=== PATIENT | female | born 1995 | race American Indian/Alaskan Native ===

== ENCOUNTER 2017-02-20 15:12 | Emergency (ER) | payer MEDICAID ==
[2017-02-20 16:05] VITALS: BP 120/77
[2017-02-20 17:47] LABS: Bacteria,Urine 2+ /HPF (Negative); Bilirubin,Urine NEG (Negative); Blood,Urine SM (Negative); Ketones,Urine NEG (Negative); Leukocyte Esterase,Urine LG (Negative); Mucus,Urine FEW /HPF; Nitrite,Urine NEG (Negative); Protein,Urine <15 mg/dL mg/dL (Negative); Urobilinogen,Urine < 2.0 mg/dL (<2.0)
--- NOTE | 2017-02-20 20:13 | Ultrasound Report ---
FINAL REPORT EXAM: US OB TRANSVAGINAL HISTORY: abd pain TECHNIQUE: Ultrasound pelvis transvaginal PRIORS: None. FINDINGS: The uterus measures 8.5 x 4.7 x 5.0 centimeters. Endometrial thickness is 1.3 centimeters. No gestational sac identified within the uterus The right ovary is 4.3 x 3.3 x 1.9 centimeters somewhat complex appearing ovarian or possibly para ovarian mass 2.5 centimeters. Left ovary is 2.7 x 1.7 x 1.8 centimeters. There is free fluid seen within the cul-de-sac. IMPRESSION: Complex appearance within the right ovary or possibly paraovarian complex mass 2.5 centimeters Free fluid within the cul-de-sac Mild endometrial thickening beta HCG results not available at this time. If positive occult ectopic cannot be excluded. Differential consideration includes hemorrhagic cyst.
--- NOTE | 2017-02-20 20:14 | Ultrasound Report ---
FINAL REPORT EXAM: US OB \T\lt; = 14 WEEKS FETUS HISTORY: abd pain TECHNIQUE: Ultrasound pelvis transabdominal PRIORS: None. FINDINGS: Uterus demonstrates mild endometrial thickening. Ovaries are not identified the transabdominal exam. Please see results of today's transvaginal study for further evaluation. IMPRESSION: Endometrial thickening Please see report for today's transvaginal exam for further findings.
--- NOTE | 2017-02-24 15:45 | ED Elopement Review ---
ED Pt Elopement review - Results review Lab results: Laboratory Tests 02/20/17 17:23 Urine Color Yellow Urine Turbidity Slightly-cloudy Urine pH 6.0 Ur Specific [place] 1.020 Urine Protein <15 mg/dl Urine Glucose (UA) Neg Urine Ketones Neg Urine Blood Sm Urine Nitrite Neg Ur Reducing Substances Not Reportable Urine Bilirubin Neg Urine Ictotest Not Reportable Urine Urobilinogen < 2.0 Ur Leukocyte Esterase Lg Urine WBC (Auto) 8.0 H Urine RBC (Auto) 2.0 U Epithel Cells (Auto) 13.0 Urine Bacteria (Auto) 2+ Urine Mucus Few Urine HCG, Qual Positive A - Call Back decision Pt Call Back Decision: Call pt to return to ED [facility] (for repeat HCG and possible ultrasound)
== END 2017-02-20 21:55 | disposition left against medical advice (07) ==
LOC: ED 15:12
DX: R10.9 Unspecified abdominal pain (principal); Z53.21 Procedure and treatment not carried out due to patient leaving prior to being seen by health care provider
CPT/HCPCS: 76801; 76817; 81001; 81025

== ENCOUNTER 2017-03-31 19:29 | Emergency (ER) | payer MEDICAID ==
[2017-03-31 20:06] LABS: Bilirubin,Urine NEG (Negative); Blood,Urine NEG (Negative); Ketones,Urine 20 mg/dL (Negative); Leukocyte Esterase,Urine LG (Negative); Mucus,Urine FEW /HPF; Nitrite,Urine NEG (Negative); Urobilinogen,Urine < 2.0 mg/dL (<2.0)
[2017-03-31 20:25] LABS: Basophils % (Auto) 0.2 % (0.0-1.8); Eosinophils % (Auto) 0.6 % (0.0-4.3); Hematocrit 32.5 % (30.3-42.9); Mean Corpuscular HGB Conc 31 % (30-34); Mean Corpuscular Volume 74 fl (79-97); Platelet Count 376 K/mm3 (140-440); Red Blood Count 4.38 M/mm3 (3.65-5.03); Red Cell Distribution Width 18.1 % (13.2-15.2); White Blood Count 15.6 K/mm3 (4.5-11.0)
[2017-03-31 20:27] LABS: Anion Gap 20 mmol/L; Blood Urea Nitrogen 6 mg/dL (7-17); Calcium 9.4 mg/dL (8.4-10.2); Carbon Dioxide 23 mmol/L (22-30); Chloride 97.4 mmol/L (98-107); Glucose 93 mg/dL (65-100); Mean Corpuscular Hemoglobin 23 pg (28-32); Potassium 3.9 mmol/L (3.6-5.0); Sodium 136 mmol/L (137-145)
[2017-03-31] MEDS ORDERED: MACROBID PO ONE (20:30)
[2017-03-31] MEDS ORDERED: TYLENOL PO ONE (20:30)
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
[2017-03-31 21:01] LABS: Alanine Aminotransferase 6 units/L (7-56); Albumin/Globulin Ratio 1.1 %; Alkaline Phosphatase 49 units/L (35-129); Lipase 23 units/L (13-60); Total Protein 7.6 g/dL (6.3-8.2)
[2017-03-31 21:02] LABS: Bilirubin,Direct < 0.2 mg/dL (0-0.2)
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
[2017-04-01 00:13] VITALS: BP 116/71
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
--- NOTE | 2017-04-01 00:30 | Ultrasound Report ---
FINAL REPORT PROCEDURE: US OB transvaginal TECHNIQUE: Real-time transvaginal sonography of the uterus, placenta, amniotic fluid, adnexa, and fetus was performed with image documentation. Measurements were obtained to determine age/size. M-mode Doppler was used to document heartbeat. HISTORY: abd pain, bleeding, preg COMPARISON: No prior studies are available for comparison. FINDINGS: CRL: 27.6 mm, which corresponds to a gestational age of: 9 weeks, 4 days. Yolk Sac: Normal. Embryonic Cardiac Activity: 166 beats per minute Gestational Sac: Normal. Amniotic fluid: Normal. Cervix: Normal. Right Ovary: Normal. Left Ovary: Normal. Estimated delivery date: 10/30/2017 Uterus and adnexa: Normal. IMPRESSION: Single live intrauterine gestation at approximately 9 weeks and 4 days. EDC by US 10/30/2017
== END 2017-04-01 00:53 | disposition home or self-care (01) ==
LOC: ED 19:29
DX: O20.0 Threatened abortion (principal); O23.31 Infections of other parts of urinary tract in pregnancy, first trimester; N30.00 Acute cystitis without hematuria; R10.84 Generalized abdominal pain; Z3A.09 9 weeks gestation of pregnancy
CPT/HCPCS: 36415; 76705; 76801; 76817; 80048; 80074; 81001; 83690; 84703; 85025

== ENCOUNTER 2017-06-21 23:41 | Outpatient (CLI) | payer MEDICAID ==
[2017-06-22 00:13] VITALS: BP 98/51
[2017-06-22] MEDS ORDERED: LACTATED RINGERS 1,000 ML IV ONE (00:45)
[2017-06-22 01:20] LABS: Bacteria,Urine 1+ /HPF (Negative); Bilirubin,Urine NEG (Negative); Blood,Urine NEG (Negative); Ketones,Urine NEG (Negative); Leukocyte Esterase,Urine LG (Negative); Mucus,Urine FEW /HPF; Nitrite,Urine NEG (Negative); Protein,Urine <15 mg/dL mg/dL (Negative); Urobilinogen,Urine < 2.0 mg/dL (<2.0)
== END 2017-06-22 02:22 | disposition home or self-care (01) ==
LOC: TRG 23:41
PROVIDERS: ATTEND Obstetrics & Gynecology
DX: O47.02 False labor before 37 completed weeks of gestation, second trimester (principal); Z3A.21 21 weeks gestation of pregnancy
CPT/HCPCS: 81001

== ENCOUNTER 2017-09-08 11:14 | Outpatient (CLI) | payer MEDICAID ==
[2017-09-08 11:52] LABS: Urine Drugs of Abuse Note Disclamer
[2017-09-08 12:32] LABS: Bacteria,Urine 1+ /HPF (Negative); Mucus,Urine 3+ /HPF
[2017-09-08 13:06] LABS: Bilirubin,Urine Negative (Negative); Blood,Urine Negative (Negative); Ketones,Urine Negative (Negative); Nitrite,Urine Negative (Negative)
[2017-09-08 13:07] LABS: Leukocyte Esterase,Urine Large (Negative)
[2017-09-08 15:17] VITALS: BP 117/80
== END 2017-09-08 15:48 | disposition home or self-care (01) ==
LOC: TRG 11:14
PROVIDERS: ATTEND Obstetrics & Gynecology
DX: O47.03 False labor before 37 completed weeks of gestation, third trimester (principal); Z3A.34 34 weeks gestation of pregnancy
CPT/HCPCS: 80307; 81001

== ENCOUNTER 2017-09-12 12:34 | Outpatient (CLI) | payer MEDICAID ==
[2017-09-12] MEDS ORDERED: LACTATED RINGERS 2,000 ML ONE (12:55)
[2017-09-12 13:15] VITALS: BP 97/54
[2017-09-12] MEDS ORDERED: LACTATED RINGERS 500 ML IV ONE (13:17)
[2017-09-12 13:53] LABS: Bilirubin,Urine NEG (Negative); Blood,Urine NEG (Negative); Ketones,Urine 80 mg/dL (Negative); Leukocyte Esterase,Urine LG (Negative); Mucus,Urine 3+ /HPF; Nitrite,Urine NEG (Negative); Urobilinogen,Urine < 2.0 mg/dL (<2.0)
[2017-09-12] MEDS ORDERED: LACTATED RINGERS 1,000 ML IV SCH (14:00)
== END 2017-09-12 15:15 | disposition home or self-care (01) ==
LOC: TRG 12:34
PROVIDERS: ATTEND Obstetrics & Gynecology
DX: O47.03 False labor before 37 completed weeks of gestation, third trimester (principal); Z3A.34 34 weeks gestation of pregnancy
CPT/HCPCS: 36415; 59025; 81001; 82731; 96360; 96361; J7120

== ENCOUNTER 2017-10-18 11:42 | Outpatient (CLI) | payer MEDICAID ==
[2017-10-18 11:55] VITALS: BP 105/57
--- NOTE | 2017-10-18 13:47 | Ultrasound Report ---
ULTRASOUND BIOPHYSICAL PROFILE: History: well being Technique: Transabdominal ultrasound with Doppler interrogation. 2 - breathing movements 2 - movements 2 - posture and tone 2 - Qualitative amniotic fluid volume 8 - TOTAL SCORE OF POSSIBLE 8 Heart Rate (bpm) 142
== END 2017-10-18 14:21 | disposition home or self-care (01) ==
LOC: TRG 11:42 → LD 11:43 → TRG 14:21
PROVIDERS: ATTEND Obstetrics & Gynecology
DX: Z34.93 Encounter for supervision of normal pregnancy, unspecified, third trimester (principal); Z3A.38 38 weeks gestation of pregnancy
CPT/HCPCS: 59025; 76819

== ENCOUNTER 2017-10-24 05:15 | Inpatient (IN) | payer MEDICAID ==
[2017-10-24] MEDS ORDERED: REGLAN IV ONE (05:56)
[2017-10-24] MEDS ORDERED: BICITRA PO ONE (05:56)
[2017-10-24] MEDS ORDERED: PEPCID IV ONE (05:56)
[2017-10-24] MEDS ORDERED: ANCEF/STERILE WATER 2 GM/20 ML 2 GM/20 ML SYRINGE IV NR ×2 (06:00→09:00)
[2017-10-24] MEDS ORDERED: PITOCin/NS 20 UNIT/1000ML DRIP 20 UNITS/1,000 ML BAG IV SCH ×2 (06:00→10:00)
[2017-10-24] MEDS: LACTATED RINGERS 1,000 ML IV SCH ×2 (06:30→07:10)
[2017-10-24 06:58] LABS: Basophils % (Auto) 0.4 % (0.0-1.8); Hematocrit 27.1 % (30.3-42.9); Hemoglobin 8.4 gm/dl (10.1-14.3); Mean Corpuscular HGB Conc 31 % (30-34); Mean Corpuscular Hemoglobin 21 pg (28-32); Mean Corpuscular Volume 69 fl (79-97); Platelet Count 355 K/mm3 (140-440); Red Blood Count 3.94 M/mm3 (3.65-5.03); Red Cell Distribution Width 19.5 % (13.2-15.2); White Blood Count 13.5 K/mm3 (4.5-11.0)
--- NOTE | 2017-10-24 07:24 | Anesthesia Consultation ---
Anesthesia Consult and Med Hx Date of service: 10/24/17 - Airway Anesthetic Teeth Evaluation: Good ROM Head & Neck: Adequate Mental/Hyoid Distance: Adequate Mallampati Class: Class II Intubation Access Assessment: Probably Good - Pre-Operative Health Status ASA Pre-Surgery Classification: ASA2 Proposed Anesthetic Plan: Epidural, Spinal - Pulmonary Hx Asthma: Yes (last used inhaler this am) COPD: No Hx Pneumonia: No - Cardiovascular System Hx Hypertension: No - Central Nervous System Hx Seizures: No Hx Psychiatric Problems: No - Endocrine Hx Renal Disease: No Hx End Stage Renal Disease: No Hx Hypothyroidism: No Hx Hyperthyroidism: No - Hematic Hx Anemia: Yes Hx Sickle Cell Disease: No - Other Systems Hx Alcohol Use: No
--- NOTE | 2017-10-24 07:25 | Anesthesia Day of Surgery ---
Anesthesia Day of Surgery - Day of Surgery Patient Examined: Yes Patient H&P Reviewed: Yes Patient is NPO: Yes
[2017-10-24] MEDS ORDERED: MORPHINE ONE (07:47)
[2017-10-24] MEDS ORDERED: WATER FOR IRRIG STERILE IR ONE (07:50)
[2017-10-24] MEDS ORDERED: NACL 0.9% IR ONE (07:50)
[2017-10-24] MEDS ORDERED: SODIUM CHLORIDE FLUSH SYRINGE 10 ML IV PRN ×2 (08:00→12:00)
[2017-10-24] MEDS ORDERED: PHENERGAN PR PRN (08:30)
[2017-10-24] MEDS ORDERED: BENADRYL IV PRN (08:30)
[2017-10-24] MEDS ORDERED: DILAUDID ONE (08:41)
[2017-10-24] MEDS ORDERED: ZOFRAN ONE (08:46)
[2017-10-24] MEDS ORDERED: METHERGINE IM ONE ×2 (08:53→12:00)
[2017-10-24] MEDS ORDERED: PEPCID IV NR (09:00)
[2017-10-24] MEDS ORDERED: REGLAN IV NR (09:00)
[2017-10-24] MEDS ORDERED: ZOFRAN IV PRN ×2 (09:00→11:30)
[2017-10-24] MEDS ORDERED: DILAUDID IV PRN ×3 (09:00→11:30)
[2017-10-24] MEDS ORDERED: NARCAN 0.4 MG/1 ML IV PRN ×2 (09:00→11:30)
[2017-10-24] MEDS ORDERED: XYLOCAINE MPF 2% ONE (09:00)
[2017-10-24] MEDS ORDERED: NEO SYNEPHRINE/NS Syringe(OR USE) IV ONE (09:00)
[2017-10-24] MEDS ORDERED: LACTATED RINGERS 1,000 ML IV SCH (09:00)
[2017-10-24] MEDS ORDERED: BICITRA PO NR (09:00)
--- NOTE | 2017-10-24 09:25 | History and Physical Report ---
History of Present Illness Date of examination: 10/24/17 Date of admission: 10/24/17 05:15 10/24/17 Chief complaint: at 39 weeks for repeat C/section. History of present illness: This patient is a 22 year old , EDC 10/31/17 who is at 39 weeks gestation and admitted for elective repeat C/section. She denies any contractions, fluid leakage or bleeding. She reports good movement. Past History Past Medical History: asthma - Obstetrical History : 3 Medications and Allergies Allergies Allergy/AdvReac Type Severity Reaction Status Date / Time [place] Allergy Hives Verified 10/24/17 05:47 mushroom Allergy Hives Verified 10/24/17 05:48 Home Medications Medication Instructions Recorded Confirmed Last Taken Type Tablet 1 tab PO DAILY 03/31/17 10/24/17 1 Day Ago History ~10/23/17 Active Meds: Active Medications Acetaminophen (Tylenol) 650 mg PO Q4H PRN PRN Reason: Fever >100.5/ALBERT Citric Acid/Sodium Citrate (Bicitra) 30 ml PO ONCE NR Stop: 10/24/17 19:00 Diphenhydramine HCl (Benadryl) 12.5 mg IV Q2H PRN PRN Reason: Itching Famotidine (Pepcid) 20 mg IV ONCE NR Stop: 10/24/17 19:00 Hydromorphone HCl (Dilaudid) 0.5 mg IV Q4H PRN PRN Reason: breakthrough pain > 7/10 Hydromorphone HCl (Dilaudid) 0.25 mg IV Q3H PRN PRN Reason: Pain, Moderate (4-6) Hydromorphone HCl (Dilaudid) 0.5 mg IV Q3H PRN PRN Reason: Pain , Severe (7-10) Lactated Ringer's (Lactated Ringers) 1,000 mls @ 2,250 mls/hr IV PREOP RADHA Stop: 10/25/17 06:27 Last Admin: 10/24/17 07:10 Dose: 2,250 mls/hr Oxytocin/Sodium Chloride (Pitocin/Ns 20 Unit/1000ml Drip) 20 units in 1,000 mls @ 0 mls/hr IV TITR RADHA PRN Reason: As Directed Cefazolin Sodium (Ancef/Sterile Water 2 Gm/20 Ml) 2 gm in 20 mls @ 80 mls/hr IV PREOP NR PRN Reason: Protocol Stop: 10/24/17 19:00 Oxytocin/Sodium Chloride (Pitocin/Ns 20 Unit/1000ml Drip) 20 units in 1,000 mls @ 250 mls/hr IV DIRECT RADHA Ketorolac Tromethamine (Toradol) 30 mg IV Q6H PRN PRN Reason: Pain, Moderate (4-6) Stop: 10/29/17 08:59 Metoclopramide HCl (Reglan) 10 mg IV ONCE NR Stop: 10/24/17 19:00 Naloxone HCl (Narcan 0.4 Mg/1 Ml) 0.2 mg IV Q2MIN PRN PRN Reason: Res Rate </= 8 or 02 SAT < 92% Naloxone HCl (Narcan 0.4 Mg/1 Ml) 0.1 mg IV Q2MIN PRN PRN Reason: Res Rate </= 8 or 02 SAT < 92% Ondansetron HCl (Zofran) 4 mg IV Q8H PRN PRN Reason: Nausea And Vomiting Ondansetron HCl (Zofran) 4 mg IV Q8H PRN PRN Reason: Nausea And Vomiting Promethazine HCl (Phenergan) 25 mg TN Q6H PRN PRN Reason: Nausea And Vomiting Senna (Senokot) 17.2 mg PO QHS PRN PRN Reason: Constipation Sodium Chloride (Sodium Chloride Flush Syringe 10 Ml) 10 ml IV PRN PRN PRN Reason: flush Sodium Chloride (Sodium Chloride Flush Syringe 10 Ml) 10 ml IV PRN NR Witch Chelsie/Glycerin (Tucks Pad) 1 each TP PRN PRN PRN Reason: Hemorrhoids/cleansing/soothing - Physical Exam Cardiovascular: Normal S1, Normal S2 Lungs: Positive: Clear to auscultation Vulva: both: normal Deep Tendon Reflex Grade: Normal +2 - Obstetrical FHR: category 1 Uterine Contraction Monitor Mode: External Cervical Dilatation: 1 Cervical Effacement Percentage: 30 station: -3 Uterine Contraction Pattern: Absent Results Result Diagrams: 10/24/17 06:00 Abnormal lab results 10/24/17 Range/Units 06:00 WBC 13.5 H (4.5-11.0) K/mm3 Hgb 8.4 L (10.1-14.3) gm/dl Hct 27.1 L (30.3-42.9) % MCV 69 L (79-97) fl MCH 21 L (28-32) pg RDW 19.5 H (13.2-15.2) % [place] # 0.9 H (0.0-0.8) K/mm3 Seg Neutrophils % 73.3 H (40.0-70.0) % Seg Neutrophils # 9.9 H (1.8-7.7) K/mm3 All other labs normal. Assessment and Plan - Patient Problems (1) 39 weeks gestation of Current Visit: Yes Status: Acute Plan to address problem: tracing is CAT 1. (2) Previous delivery, delivered Current Visit: Yes Status: Acute Plan to address problem: Patient declined . Risks, benefits, and alternatives of the procedure were discussed in detail with the patient which included but not limited to the risks of infection, hemorrhage requiring blood transfusion, injury to the bowel, bladder, and blood vessels. The patient expressed understanding, her questions were answered, she gave her informed consent. (3) Anemia Current Visit: Yes Status: Acute Qualifiers: Anemia type: iron deficiency Plan to address problem: Iron Sulfate. Monitor H/H.
--- NOTE | 2017-10-24 10:02 | Operative Report ---
Operative Report Operative Report: Preoperative diagnosis: 1. SIUP at 39 weeks gestation, not in labor. 2. Previous section. 3. Declined . Post op diagnosis: 1. Same as preop diagnosis. 2. Small for gestational age infant. 3. Adhesions of the omentum to the anterior fascia. Procedure: Repeat low-transverse section. Surgeon: Dr. Prabhakar. Electric Motor Repair Supervisor: none Anesthesia: Spinal/epidural Complications: none EBL: 600 mL IVF: 1 L of RL Urine: 100 cc clear. Intraoperative findings: 1. A male infant found in an CARY position, delivered at 8:30 AM, Apgars 9 at 1 minute and 9 at 5 minutes, weight 5 lbs. 3 oz. 2. Small for gestational age infant. 3. Adhesions of the omentum to the fascia. Procedure details: Risks, benefits, and alternatives of the procedure were discussed in detail with the patient which included but not limited to the risk of infection, hemorrhage requiring blood transfusion, injury to the bowel bladder and blood vessels. The patient expressed understanding, her questions were answered, and she gave informed consent. The patient was taken to the operating room with an IV fluid infusing Ringers lactate. In the operating room, she was placed in a sitting position and given spinal anesthesia. She was placed in the dorsal supine position with a leftward tilt. Verdin catheter and Venodyne boots were placed. The abdomen was washed and she was prepared and draped in usual sterile fashion. After confirming adequate spinal anesthesia, a Pfannenstiel skin incision was made in the lower abdomen at the level of the previous scar which is about 2 cm above the pubic symphysis using the scalpel. This incision was carried down to the underlying fascia using the Bovie. The fascia was opened bilaterally in a curvilinear fashion using the Bovie. 2 straight Kocker clamps were used to grasp the upper edge of the fascia from which the underlying rectus abdominis muscle was dissected off using the Bovie. A similar procedure was done with the lower edge of the fascia to dissect the underlying rectus abdominis muscle. The muscle was bluntly from the midline by pulling. The parietal peritoneum was entered sharply using Metzenbaum scissors. A quick survey of the anatomy revealed omental adhesions to the anterior fascia. Lysis of adhesions was performed. The ovaries and tubes were normal. A bladder flap was created. Elpidio' O retractor was placed at the incision for proper visualization. A low transverse incision was made in the lower uterine segment using the scalpel and extended bilaterally using bandage scissors. The amniotic sac was ruptured and there was copious amount of clear amniotic fluid. The was found in an CARY position. The head was delivered atraumatically , bulb suction of the mouth and nose was performed. This was followed by the delivery of the shoulders and the rest of the body atraumatically. The cord was clamped 2 and cut and the infant was handed off to the awaiting masonry inspector. The infant was a male, delivered at 8:30 AM, Apgars were 9 at 1 minute and 9 at 5 minutes, weight 5 pounds and 3 ounces. Cord blood was collected. The placenta was delivered manually and it was complete with a three -vessel cord. The uterine incision was repaired in a running locked fashion using 0 Vicryl sutures. A second layer of imbrication was placed. The gutters were cleaned off clots and debris using dry lap sponges. After confirming adequate hemostasis, the instruments were removed from the abdomen. The rectus muscle was reapproximated using interrupted stitches of 0 Vicryl sutures. The fascia was closed in a running fashion using 0 Vicryl sutures. The skin was closed with anand. Sterile dressing was placed. The counts of laps, needles, sponges, and instruments were correct 2. The patient tolerated the procedure well. She was taken to the recovery room in a stable condition.
--- NOTE | 2017-10-24 10:23 | Post Anesthesia Evaluation ---
- Post Anesthesia Evaluation Patient Participated: Yes Airway Patent: Yes Stable Respiratory Function: Yes Nausea/Vomiting: No Temp > 96.8F: Yes Pain Manageable: Yes Adequeate Hydration: Yes Anesthesia Complications: No Block Receding Appropriately: Not Applicable Patient on Ventilator: No
[2017-10-24] MEDS ORDERED: TYLENOL PO PRN (11:30)
[2017-10-24] MEDS ORDERED: TUCKS PAD TP PRN (11:30)
[2017-10-24 11:49] LABS: Basophils % (Auto) 0.2 % (0.0-1.8); Eosinophils % (Auto) 0.1 % (0.0-4.3); Mean Corpuscular HGB Conc 29 % (30-34); Platelet Count 361 K/mm3 (140-440); Red Blood Count 4.42 M/mm3 (3.65-5.03); Red Cell Distribution Width 19.1 % (13.2-15.2); White Blood Count 14.7 K/mm3 (4.5-11.0)
[2017-10-24 11:50] LABS: Hematocrit 30.6 % (30.3-42.9); Mean Corpuscular Hemoglobin 20 pg (28-32); Mean Corpuscular Volume 69 fl (79-97)
[2017-10-24] MEDS: TORADOL IV PRN (17:39)
[2017-10-24] MEDS ORDERED: PROAIR IH PRN (18:25)
[2017-10-24] MEDS ORDERED: PROVENTIL IH PRN (18:37)
[2017-10-24 21:31] LABS: Hematocrit 23.6 % (30.3-42.9); Hemoglobin 7.2 gm/dl (10.1-14.3)
[2017-10-25] MEDS: TORADOL IV PRN ×2 (01:34→14:25)
[2017-10-25] MEDS ORDERED: AMMONIA INHALANT IH ONE (05:08)
[2017-10-25] MEDS ORDERED: MOTRIN PO PRN (14:35)
--- NOTE | 2017-10-25 14:40 | Progress Note ---
Assessment and Plan - Patient Problems (1) 39 weeks gestation of Current Visit: Yes Status: Acute (2) Anemia Current Visit: Yes Status: Acute Qualifiers: Anemia type: iron deficiency Iron deficiency anemia type: chronic blood loss Qualified Code(s): D50.0 - Iron deficiency anemia secondary to blood loss (chronic) Plan to address problem: Iron Sulfate. Monitor H/H. (3) delivery delivered Current Visit: Yes Status: Acute Plan to address problem: Routine post op care. Encourage ambulation. Continue pain meds. Subjective - Subjective Date of service: 10/25/17 Interval history: Patient is S/P repeat C/section, POD 1. No complaint. She is tolerating regular diet well. H/H is 7.2/20/05, but she is asymptomatic. She has been ambulating without any dizziness. Objective - Vital Signs Latest vital signs: Vital Signs Temp Pulse Resp BP Pulse Ox 10/25/17 09:01 101/57 10/25/17 08:52 98.2 F 65 18 96/49 10/25/17 02:04 20 10/25/17 01:34 20 10/24/17 21:50 97.7 F 76 18 110/57 10/24/17 18:18 79 24 100 10/24/17 16:19 97.7 F 84 28 H 108/49 Intake and Output 10/24/17 10/25/17 10/25/17 23:59 07:59 15:59 Intake Total 120 680 240 Output Total 350 700 Balance -230 -20 240 Intake: Oral 120 680 240 Output: Urine 350 700 Indwelling Catheter 150 700 Uretheral (Verdin) 200 Other: Total, Intake Amount 120 480 240 Total, Output Amount 150 700 # Voids Indwelling Catheter 2 1 # Bowel Movements 0 - Exam Cardiovascular: Present: Normal S1, Normal S2 Lungs: Present: Clear to auscultation Vulva: both: normal Deep Tendon Reflex Grade: Normal +2 - Labs Labs: Abnormal lab results 10/24/17 Range/Units 21:08 Hgb 7.2 L (10.1-14.3) gm/dl Hct 23.6 L D (30.3-42.9) %
[2017-10-25] MEDS ORDERED: SENOKOT PO PRN (22:00)
[2017-10-25] MEDS: FEOSOL PO SCH (22:03)
[2017-10-25] MEDS: COLACE PO SCH (22:04)
[2017-10-26] MEDS: PERCOCET 5/325 PO PRN ×2 (01:24→10:18)
[2017-10-26] MEDS: FEOSOL PO SCH ×2 (10:19→12:28)
[2017-10-26] MEDS: COLACE PO SCH ×2 (10:21→12:29)
--- NOTE | 2017-10-26 10:42 | Progress Note ---
Assessment and Plan A: POD# 2 Asymptomatic Anemia P: Follow routine PostOp orders Infed 100mg IM x 1 dose Continue FeSO4 as ordered Depo Provera prior to discharge D/C Home today per patient request RTO in One Week Subjective - Subjective Date of service: 10/26/17 Patient reports: appetite normal, voiding normally, pain well controlled, flatus , bowel movement, ambulating normally, other (denies fatigue, dizziness, HAs) [place]: doing well Objective - Vital Signs Latest vital signs: Vital Signs Temp Pulse Resp BP 10/26/17 01:24 18 10/26/17 00:05 98.2 F 94 H 18 115/54 10/25/17 16:27 98.9 F 79 18 101/55 Intake and Output 10/25/17 10/26/17 10/26/17 22:59 06:59 14:59 Intake Total 480 480 Output Total 2 Balance 480 478 Intake: Oral 480 480 Output: Urine 2 Void 2 Other: Total, Intake Amount 480 240 Total, Output Amount 1 # Voids Void 300 - Exam Breasts: Present: normal Cardiovascular: Present: Regular rate Lungs: Present: Clear to auscultation, Normal air movement Abdomen: Present: normal appearance, soft, normal bowel sounds Uterus: Present: normal, firm, fundal height below umbilicus Extremities: Present: normal Incision: Present: normal, dry, intact
--- NOTE | 2017-10-26 10:44 | Discharge Summary ---
Providers - Providers Date of Admission: 10/24/17 05:15 Date of discharge: 10/26/17 Attending physician: ANGEL VELIZ MD Primary care physician: ANGEL VELIZ MD Hospitalization Reason for admission: section Delivery: Procedure: repeat low transverse Episiotomy: none Laceration: none Incision: normal, dry, intact Other procedures: none complications: none Discharge diagnosis: IUP at term delivered [place] baby: male Condition at discharge: Good Disposition: DC-01 TO HOME OR SELFCARE Plan - Provider Discharge Summary Activity: routine, no sex for 6 weeks, no heavy lifting 4 weeks, no strenuous exercise Diet: routine Instructions: routine Additional instructions: [] Smoking cessation referral if applicable(refer to patient education folder for contact #) [] Refer to [facility] Booklet Call your doctor immediately for: * Fever > 100.5 * Heavy vaginal bleeding ( >1 pad per hour) * Severe persistent headache * Shortness of breath * Reddened, hot, painful area to leg or breast * Drainage or odor from incision. * Keep incision clean and dry at all times and follow doctor's instructions regarding bathing/showering - Follow up plan Follow up: ANGEL VELIZ MD [Primary Care Provider] - 7 Days
[2017-10-26 10:57] VITALS: BP 99/68
[2017-10-26] MEDS ORDERED: DEPO-PROVERA (CONTRACEPTION) IM NR (11:30)
[2017-10-26] MEDS ORDERED: INFED IM NR (11:30)
== END 2017-10-26 14:30 | disposition home or self-care (01) | DRG 765 ==
LOC: APU 05:15 → OB 11:08
PROVIDERS: ADMIT Obstetrics & Gynecology; ATTEND Obstetrics & Gynecology
PROC: 10D00Z1 Extraction of Products of Conception, Low, Open Approach (ICD-10-PCS; principal; 2017-10-24)
DX: O34.211 Maternal care for low transverse scar from previous cesarean delivery (principal); R71.0 Precipitous drop in hematocrit; P05.18 Newborn small for gestational age, 2000-2499 grams; O99.02 Anemia complicating childbirth; O99.52 Diseases of the respiratory system complicating childbirth; Z3A.39 39 weeks gestation of pregnancy; Z37.0 Single live birth; Z91.018 Allergy to other foods
CPT/HCPCS: 36415; 85014; 85018; 85025; 86850; 86900; 86901; 99211; G0463; J0690; J1050; J1170; J1750; J1885; J2210; J2270; J2370; J2405; J2590; J2765; J7120

== ENCOUNTER 2019-03-12 23:05 | Emergency (ER) | payer MEDICAID ==
[2019-03-12] MEDS ORDERED: NACL 0.9% 1000 ML 1,000 ML IV ONE (23:18)
[2019-03-12 23:31] LABS: Basophils % (Auto) 0.3 % (0.0-1.8); Eosinophils # (Auto) 0.3 K/mm3 (0.0-0.4); Eosinophils % (Auto) 1.8 % (0.0-4.3); Hematocrit 35.1 % (30.3-42.9); Hemoglobin 11.3 gm/dl (10.1-14.3); Lymphocytes # (Auto) 3.7 K/mm3 (1.2-5.4); Lymphocytes % (Auto) 26.1 % (13.4-35.0); Mean Corpuscular HGB Conc 32 % (30-34); Mean Corpuscular Volume 82 fl (79-97); Monocytes # (Auto) 1.1 K/mm3 (0.0-0.8); Monocytes % (Auto) 7.4 % (0.0-7.3); Platelet Count 412 K/mm3 (140-440); Red Cell Distribution Width 16.7 % (13.2-15.2)
[2019-03-12 23:46] LABS: Bilirubin,Urine NEG (Negative); Blood,Urine NEG (Negative); Color,Urine Yellow (Yellow); Mucus,Urine FEW /HPF; Protein,Urine <15 mg/dL mg/dL (Negative); Urobilinogen,Urine < 2.0 mg/dL (<2.0)
[2019-03-12 23:53] LABS: Alanine Aminotransferase 8 units/L (7-56); BUN/Creatinine Ratio 12; Blood Urea Nitrogen 6 mg/dL (7-17); Calcium 9.5 mg/dL (8.4-10.2); Hemolysis Index 9
[2019-03-13 19:54] VITALS: BP 122/71
== END 2019-03-13 00:50 | disposition left against medical advice (07) ==
LOC: ED 23:05
DX: R10.9 Unspecified abdominal pain (principal); Z53.21 Procedure and treatment not carried out due to patient leaving prior to being seen by health care provider
CPT/HCPCS: 36415; 80053; 81001; 84703; 85025

== ENCOUNTER 2019-07-09 19:45 | Emergency (ER) | payer MEDICAID ==
--- NOTE | 2019-07-09 20:26 | Emergency Department Report ---
Blank Doc - Documentation Documentation: This is a 24-year-old female that presents with pelvic pain and nausea. Denies any vaginal discharge or vaginal bleeding. This initial assessment/diagnostic orders/clinical plan/treatment(s) is/are subject to change based on patient's health status, clinical progression and re- assessment by fellow clinical providers in the ED. Further treatment and workup at subsequent clinical providers discretion. Patient/guardians urged not to elope from the ED as their condition may be serious if not clinically assessed and managed. Initial orders include: 1- Patient sent to [facility] for further evaluation and treatment 2- UA
[2019-07-09 22:01] LABS: Basophils # (Auto) 0.1 K/mm3 (0.0-0.1); Basophils % (Auto) 0.5 % (0.0-1.8); Eosinophils # (Auto) 0.2 K/mm3 (0.0-0.4); Hematocrit 34.7 % (30.3-42.9); Hemoglobin 11.2 gm/dl (10.1-14.3); Lymphocytes # (Auto) 2.9 K/mm3 (1.2-5.4); Lymphocytes % (Auto) 24.4 % (13.4-35.0); Mean Corpuscular HGB Conc 32 % (30-34); Mean Corpuscular Volume 80 fl (79-97); Monocytes # (Auto) 0.8 K/mm3 (0.0-0.8); Monocytes % (Auto) 6.8 % (0.0-7.3); Platelet Count 426 K/mm3 (140-440); Red Blood Count 4.36 M/mm3 (3.65-5.03); Red Cell Distribution Width 16.6 % (13.2-15.2)
[2019-07-09 22:04] LABS: Alanine Aminotransferase 7 units/L (7-56); BUN/Creatinine Ratio 8; Blood Urea Nitrogen 5 mg/dL (7-17); Calcium 9.7 mg/dL (8.4-10.2); Hemolysis Index 2
[2019-07-10 00:05] LABS: Bacteria,Urine 2+ /HPF (Negative); Bilirubin,Urine NEG (Negative); Blood,Urine NEG (Negative); Color,Urine Yellow (Yellow); Mucus,Urine FEW /HPF; Protein,Urine <15 mg/dL mg/dL (Negative)
--- NOTE | 2019-07-10 00:16 | Emergency Department Report ---
ED Female HPI - General Chief complaint: Abdominal Pain Stated complaint: ABDOMINAL PAIN Time Seen by Provider: 07/09/19 20:25 Source: patient Mode of arrival: Ambulatory Limitations: No Limitations - History of Present Illness Initial comments: Lee Ann is a 24-year-old female who presents with pelvic pain for the past 2 weeks. Achy mild to moderate severe pain. No radiation. Last superior one month ago. Denies vaginal discharge. Denies vaginal bleeding. Gradual onset of pain. She has had 4 pregnancies. 2 c-sections 2 miscarriages Complaint: pelvic pain -: Gradual, week(s) (2) Severity: mild Quality: dull Consistency: constant Improves with: none Worsens with: none Associated Symptoms: denies other symptoms - Related Data Sexually active: Yes Home Medications Medication Instructions Recorded Confirmed Last Taken Tablet 1 tab PO DAILY 03/31/17 10/24/17 1 Day Ago ~10/23/17 Previous Rx's Medication Instructions Recorded Last Taken Type Ibuprofen [Motrin] 800 mg PO Q8HR PRN #30 tablet 09/23/18 Unknown Rx Ondansetron [Zofran Odt] 4 mg PO Q8HR PRN #20 tab.rapdis 09/23/18 Unknown Rx metroNIDAZOLE [Flagyl] 500 mg PO Q12HR #14 tab 09/23/18 Unknown Rx Allergies Allergy/AdvReac Type Severity Reaction Status Date / Time Coconut Allergy Hives Verified 10/24/17 05:47 mushroom Allergy Hives Verified 10/24/17 05:48 ED Review of Systems ROS: Stated complaint: ABDOMINAL PAIN Other details as noted in HPI Comment: All other systems reviewed and negative Constitutional: denies: fever, malaise Gastrointestinal: abdominal pain. denies: nausea, diarrhea ED Past Medical Hx - Past Medical History Previous Medical History?: Yes Hx Hypertension: No Hx Congestive Heart Failure: No Hx Diabetes: No Hx Deep Vein Thrombosis: No Hx Renal Disease: No Hx Sickle Cell Disease: No Hx Seizures: No Hx Asthma: Yes (last used inhaler this am) Hx COPD: No Hx HIV: No - Surgical History Additional Surgical History: X2 - Social History Smoking Status: Never Smoker - Medications Home Medications: Home Medications Medication Instructions Recorded Confirmed Last Taken Type Tablet 1 tab PO DAILY 03/31/17 10/24/17 1 Day Ago History ~10/23/17 Ibuprofen [Motrin] 800 mg PO Q8HR PRN #30 tablet 09/23/18 Unknown Rx Ondansetron [Zofran Odt] 4 mg PO Q8HR PRN #20 tab.rapdis 09/23/18 Unknown Rx metroNIDAZOLE [Flagyl] 500 mg PO Q12HR #14 tab 09/23/18 Unknown Rx ED Physical Exam - General Limitations: No Limitations General appearance: alert, in no apparent distress, other (smiling pleasant no acute distress) - Head Head exam: Present: atraumatic, normocephalic - Eye Eye exam: Present: normal appearance - ENT ENT exam: Present: mucous membranes moist - Neck Neck exam: Present: normal inspection, full ROM - Respiratory Respiratory exam: Present: normal lung sounds bilaterally. Absent: respiratory distress, wheezes, rhonchi - Cardiovascular Cardiovascular Exam: Present: regular rate, normal rhythm, normal heart sounds. Absent: bradycardia, tachycardia, systolic murmur, diastolic murmur, rubs, gallop - GI/Abdominal GI/Abdominal exam: Present: soft, normal bowel sounds. Absent: distended, tenderness, guarding, rebound - Extremities Exam Extremities exam: Present: normal inspection - Back Exam Back exam: Present: normal inspection - Neurological Exam Neurological exam: Present: alert, oriented X3 - Psychiatric Psychiatric exam: Present: normal affect, normal mood - Skin Skin exam: Present: warm, dry, intact, normal color. Absent: rash ED Course Vital Signs 07/09/19 07/10/19 20:26 00:16 Temperature 98.8 F 97.9 F Pulse Rate 91 H 76 Respiratory 18 16 Rate Blood Pressure 113/79 Blood Pressure 113/70 [Right] O2 Sat by Pulse 99 100 Oximetry ED Medical Decision Making - Lab Data Result diagrams: 07/09/19 21:24 07/09/19 21:24 Laboratory Results - last 24 hr 07/09/19 07/09/19 07/09/19 21:24 21:24 21:24 WBC 12.0 H RBC 4.36 Hgb 11.2 Hct 34.7 MCV 80 MCH 26 L MCHC 32 RDW 16.6 H Plt Count 426 Lymph % (Auto) 24.4 [place] % (Auto) 6.8 Eos % (Auto) 2.0 Baso % (Auto) 0.5 Lymph # 2.9 Bull[place] # 0.8 Eos # 0.2 Baso # 0.1 Seg Neutrophils % 66.3 Seg Neutrophils # 8.0 H Sodium 138 Potassium 4.2 Chloride 102.2 Carbon Dioxide 24 Anion Gap 16 BUN 5 L Creatinine 0.6 L Estimated GFR > 60 BUN/Creatinine Ratio 8 Glucose 83 Calcium 9.7 Total Bilirubin 0.20 AST 13 ALT 7 Alkaline Phosphatase 52 Total Protein 8.0 Albumin 4.0 Albumin/Globulin Ratio 1.0 HCG, Qual Positive Ur Reducing Substances Urine Bilirubin Urine Ictotest Urine RBC (Auto) U Epithel Cells (Auto) 07/09/19 Unknown WBC RBC Hgb Hct MCV MCH MCHC RDW Plt Count Lymph % (Auto) [place] % (Auto) Eos % (Auto) Baso % (Auto) Lymph # Bull[place] # Eos # Baso # Seg Neutrophils % Seg Neutrophils # Sodium Potassium Chloride Carbon Dioxide Anion Gap BUN Creatinine Estimated GFR BUN/Creatinine Ratio Glucose Calcium Total Bilirubin AST ALT Alkaline Phosphatase Total Protein Albumin Albumin/Globulin Ratio HCG, Qual Ur Reducing Substances Not Reportable Urine Bilirubin Neg Urine Ictotest Not Reportable Urine RBC (Auto) 1.0 U Epithel Cells (Auto) 6.0 - Radiology Data Radiology results: report reviewed cystic structure in uterus, likely early gestational sac - Medical Decision Making Lee Ann presents with new diagnosis of . Positive pelvic pain without signs of peritonitis. likely IUP according to US, Ms. Reyna given ectopic precautions. Encouraged to f/u with OBGYN this week. Critical care attestation.: If time is entered above; I have spent that time in minutes in the direct care of this critically ill patient, excluding procedure time. ED Disposition Clinical Impression: Abdominal pain affecting Disposition: DC- TO HOME OR SELFCARE Is pt being admited?: No Does the pt Need Aspirin: No Condition: Stable Instructions: Abdominal Pain in (ED) Referrals: DANIA JOE MD [Primary Care Provider] - 3-5 Days Forms: Work/School Release Form(ED)
[2019-07-10 00:18] VITALS: BP 113/70
--- NOTE | 2019-07-11 08:40 | Ultrasound Report ---
OB Ultrasound HISTORY: Lower pelvic pain for the past 24 hours. TECHNIQUE: Grayscale and color Doppler imaging performed. COMPARISON: None FINDINGS: Transabdominal imaging performed. Uterus is normal in size. There are small right ovarian f ollicles with normal appearance of the left ovary and normal bilateral ovarian blood flow. There is a cystic structure within the uterus with mean diameter of 1.2 cm correlating with an EGA of 6 weeks a nd 0 days. There is no internal pole or yolk sac. No free fluid in the pelvis. IMPRESSION: 1. Cystic structure within the uterus may represent an early gestational sac. Correlate with beta hCG level and if needed consider follow-up pelvic ultrasound. 2. Right ovarian follicles. Signer Name: Denis Robb MD Signed: 07/10/2019 2:11 AM Workstation Name: [id number]
--- NOTE | 2019-07-13 09:39 | Ultrasound Report ---
ULTRASOUND OB TRANSVAGINAL HISTORY: Lower pelvic pain for the past 24 hours TECHNIQUE: Transvaginal ultrasound with color Doppler imaging FINDINGS: This examination is just presented to me due to technical factors at the hospital. The uter us is anteverted. No uterine mass is identified. An intrauterine gestational sac is identified contai ariel a small yolk sac. Average diameter measures 1.2 cm correlating with a 6 week 0 day . No pole or heart tones could be identified. The ovaries are normal size, contour and echote xture. No pelvic fluid collection. 1.5 cm corpus luteum cyst in the right ovary is suspected. IMPRESSION: Probable early intrauterine . No pole is identified at this time. Close interval follo w-up is recommended. Signer Name: Saeid Fishman Jr, MD Signed: 07/13/2019 9:35 AM Workstation Name: [id number]
== END 2019-07-10 02:39 | disposition home or self-care (01) ==
LOC: ED 19:45
DX: O26.891 Other specified pregnancy related conditions, first trimester (principal); R10.2 Pelvic and perineal pain; O99.511 Diseases of the respiratory system complicating pregnancy, first trimester; J45.909 Unspecified asthma, uncomplicated; Z91.018 Allergy to other foods; Z79.899 Other long term (current) drug therapy; Z3A.00 Weeks of gestation of pregnancy not specified
CPT/HCPCS: 36415; 76801; 76817; 80053; 81001; 84702; 84703; 85025; 99284

== ENCOUNTER 2020-09-05 17:34 | Emergency (ER) | payer MEDICAID ==
[2020-09-05 17:44] VITALS: BP 116/75
--- NOTE | 2020-09-05 18:31 | XRay Report ---
Right ankle 3 views INDICATION: Right ankle pain following injury IMPRESSION: No fracture or subluxation of the right ankle is identified. Signer Name: Gumaro Delgado MD Signed: 09/05/2020 6:27 PM Workstation Name: [id number]
[2020-09-05] MEDS ORDERED: HYDROcodone/ACETAMINOPHEN 5-325 MG TAB PO ONE (19:58)
[2020-09-05] MEDS ORDERED: IBUPROFEN 600 MG TAB PO ONE (19:58)
[2020-09-05] MEDS ORDERED: ONDANSETRON 4 MG ODT TAB PO ONE (19:58)
--- NOTE | 2020-09-05 20:41 | Emergency Department Report ---
ED Lower Extremity HPI - General Chief Complaint: Extremity Injury, Lower Stated Complaint: RT ANKLE PAIN Source: patient Mode of arrival: Ambulatory Limitations: No Limitations - History of Present Illness Initial Comments: Patient is a 25-year-old -Citizen Of [place] female with no past medical history who presents to the ED with complaint of acute onset persistent severe right ankle pain and swelling after she tripped down the stairs, twisted her right ankle and fell down the stairs about 6 days ago. Patient states that she is unable to bear weight on the right ankle due to severe pain. Patient denies numbness and tingling or weakness of right leg, dizziness, syncope, change in vision, seizures, chest pain, shortness of breath, back pain, hip pain, or low back pain. MD Complaint: ankle injury (Left ankle injury and pain) -: Sudden, hour(s) (6) Injury: Ankle: Right (Pain and swelling) Type of Injury: blunt, inversion Place: home Severity: severe Severity scale (0 -10): 8 Improves With: nothing Worsens With: weight bearing, movement, palpation Context: walking, other (slipped and fell down the stairs) Associated Symptoms: swelling, able to partially bear weight. denies: snap/pop sensation, numbness, tingling, unable to bear weight, ambulatory - Related Data Home Medications Medication Instructions Recorded Confirmed Last Taken Tablet 1 tab PO DAILY 03/31/17 10/24/17 1 Day Ago ~10/23/17 Previous Rx's Medication Instructions Recorded Last Taken Type Ibuprofen [Motrin] 800 mg PO Q8HR PRN #30 tablet 09/23/18 Unknown Rx Ondansetron [Zofran Odt] 4 mg PO Q8HR PRN #20 tab.rapdis 09/23/18 Unknown Rx metroNIDAZOLE [Flagyl] 500 mg PO Q12HR #14 tab 09/23/18 Unknown Rx Ibuprofen [Motrin] 600 mg PO Q8H PRN #30 tablet 09/05/20 Unknown Rx tiZANidine [Zanaflex 4mg TAB] 4 mg PO Q12H PRN #21 tablet 09/05/20 Unknown Rx traMADoL [Ultram] 50 mg PO Q6HR PRN #12 tablet 09/05/20 Unknown Rx Allergies Allergy/AdvReac Type Severity Reaction Status Date / Time Coconut Allergy Hives Verified 10/24/17 05:47 mushroom Allergy Hives Verified 10/24/17 05:48 ED Review of Systems ROS: Stated complaint: RT ANKLE PAIN Other details as noted in HPI Constitutional: denies: chills, fever Eyes: denies: eye pain, eye discharge, vision change ENT: denies: ear pain, throat pain Respiratory: denies: cough, shortness of breath, wheezing Cardiovascular: denies: chest pain, palpitations Endocrine: no symptoms reported Gastrointestinal: denies: abdominal pain, nausea, diarrhea Genitourinary: denies: urgency, dysuria, discharge Musculoskeletal: joint swelling (Severe right ankle pain and mild swelling), arthralgia (Severe right ankle pain and mild swelling). denies: back pain, myalgia Skin: denies: rash, lesions Neurological: denies: headache, weakness, paresthesias Psychiatric: denies: anxiety, depression Hematological/Lymphatic: denies: easy bleeding, easy bruising ED Past Medical Hx - Past Medical History Previous Medical History?: Yes Hx Hypertension: No Hx Congestive Heart Failure: No Hx Diabetes: No Hx Deep Vein Thrombosis: No Hx Renal Disease: No Hx Sickle Cell Disease: No Hx Seizures: No Hx Asthma: Yes (last used inhaler this am) Hx COPD: No Hx HIV: No - Surgical History Past Surgical History?: Yes Additional Surgical History: X2 - Social History Smoking Status: Never Smoker - Medications Home Medications: Home Medications Medication Instructions Recorded Confirmed Last Taken Type Tablet 1 tab PO DAILY 03/31/17 10/24/17 1 Day Ago History ~10/23/17 Ibuprofen [Motrin] 800 mg PO Q8HR PRN #30 tablet 09/23/18 Unknown Rx Ondansetron [Zofran Odt] 4 mg PO Q8HR PRN #20 tab.rapdis 09/23/18 Unknown Rx metroNIDAZOLE [Flagyl] 500 mg PO Q12HR #14 tab 09/23/18 Unknown Rx Ibuprofen [Motrin] 600 mg PO Q8H PRN #30 tablet 09/05/20 Unknown Rx tiZANidine [Zanaflex 4mg TAB] 4 mg PO Q12H PRN #21 tablet 09/05/20 Unknown Rx traMADoL [Ultram] 50 mg PO Q6HR PRN #12 tablet 09/05/20 Unknown Rx ED Physical Exam - General Limitations: No Limitations General appearance: alert, in no apparent distress - Head Head exam: Present: atraumatic, normocephalic, normal inspection - Eye Eye exam: Present: normal appearance, PERRL, EOMI Pupils: Present: normal accommodation - ENT ENT exam: Present: normal exam, normal orophraynx, mucous membranes moist, TM's normal bilaterally, normal external ear exam - Neck Neck exam: Present: normal inspection, full ROM - Respiratory Respiratory exam: Present: normal lung sounds bilaterally. Absent: respiratory distress, wheezes, chest wall tenderness, accessory muscle use, decreased breath sounds - Cardiovascular Cardiovascular Exam: Present: regular rate, normal rhythm, normal heart sounds. Absent: systolic murmur, diastolic murmur, rubs, gallop - GI/Abdominal GI/Abdominal exam: Present: soft, normal bowel sounds. Absent: tenderness, guarding, rebound, hyperactive bowel sounds, hypoactive bowel sounds - Extremities Exam Extremities exam: Present: normal inspection, full ROM, tenderness (Palpable right ankle tenderness with mild swelling and limited range of motion due to pain), normal capillary refill, joint swelling. Absent: pedal edema, calf tenderness - Back Exam Back exam: Present: normal inspection, full ROM. Absent: tenderness, CVA tenderness (R), CVA tenderness (L), muscle spasm, paraspinal tenderness, vertebral tenderness - Neurological Exam Neurological exam: Present: alert, oriented X3, CN II-XII intact, normal gait, reflexes normal - Psychiatric Psychiatric exam: Present: normal affect, normal mood - Skin Skin exam: Present: warm, dry, intact, normal color. Absent: rash ED Course Vital Signs 09/05/20 17:43 Temperature 98.8 F Pulse Rate 76 Respiratory 17 Rate Blood Pressure 116/75 [Left] O2 Sat by Pulse 100 Oximetry ED Lower Extremity MDM - Radiology Data Radiology results: report reviewed, image reviewed Findings [facility] [address] [place] [address] XRay Report Signed Patient: TIEN REARDON MR#: [id number] : 1995 Acct:[id number] Age/Sex: 25 / F ADM Date: 09/05/20 Loc: ED Attending Dr: Ordering Physician: GLORIA BARNARD MD Date of Service: 09/05/20 Procedure(s): XR ankle 3+V RT Accession Number(s): [id number] cc: ED MD AKIL Fluoro Time In Minutes: Right ankle 3 views INDICATION: Right ankle pain following injury IMPRESSION: No fracture or subluxation of the right ankle is identified. Signer Name: Gumaro Delgado MD Signed: 09/05/2020 6:27 PM Workstation Name: [id number] Transcribed By: BALAJI Dictated By: Gumaro Delgado MD Electronically Authenticated By: Gumaro Delgado MD Signed Date/Time: 09/05/201826 DD/ 25 TD/TT: - Medical Decision Making This is a 25-year-old -Citizen Of [place] female with no past medical history who presents to the ED with complaint of acute onset persistent severe right ankle pain and swelling after she tripped down the stairs, twisted her right ankle and fell down the stairs about 6 days ago. Patient states that she is unable to bear weight on the right ankle due to severe pain. In the ED, patient is alert and oriented x3 and is not in distress. Patient however appears to be in pain. Patient was treated for pain in the ED and right ankle x-ray shows no acute fractures or subluxations. The right ankle were splinted with Espinoza wrap and the patient will discharge home on pain medications and also given crutches to aid in ambulation. Patient was advised to follow-up with her primary care physician in 5 to 7 days for reevaluation or return to the ED immediately if symptoms get worse. - Differential Diagnosis Ankle fracture; ankle sprain; muscle strain; ankle contusion Critical care attestation.: If time is entered above; I have spent that time in minutes in the direct care of this critically ill patient, excluding procedure time. ED Disposition Clinical Impression: Severe sprain of right ankle Qualifiers: Encounter type: initial encounter Qualified Code(s): S93.401A - Sprain of unspecified ligament of right ankle, initial encounter Muscle strain of right ankle Qualifiers: Encounter type: initial encounter Qualified Code(s): S96.911A - Strain of unspecified muscle and tendon at ankle and foot level, right foot, initial encounter Disposition: TO HOME OR SELFCARE Is pt being admited?: No Does the pt Need Aspirin: No Condition: Stable Instructions: Muscle Strain (ED), Ankle Exercises (GEN), Ankle Sprain (ED) Additional Instructions: The x-ray of your right ankle shows no acute fractures or subluxations. Therefore take medications with food, drink plenty of fluids and follow-up with your primary care physician in 7 to 10 days for reevaluation. Return to the ED immediately if symptoms get worse. Prescriptions: Ibuprofen [Motrin] 600 mg PO Q8H PRN #30 tablet PRN Reason: Pain traMADoL [Ultram] 50 mg PO Q6HR PRN #12 tablet PRN Reason: Pain tiZANidine [Zanaflex 4mg TAB] 4 mg PO Q12H PRN #21 tablet PRN Reason: Muscle Spasm Referrals: [facility] [Provider Group] - 3-5 Days Time of Disposition: 20:39 Print Language: CITIZEN OF [place]
== END 2020-09-05 22:08 | disposition home or self-care (01) ==
LOC: ED 17:34
DX: S93.401A Sprain of unspecified ligament of right ankle, initial encounter (principal); S96.911A Strain of unspecified muscle and tendon at ankle and foot level, right foot, initial encounter; J45.909 Unspecified asthma, uncomplicated; Z98.890 Other specified postprocedural states; Z91.018 Allergy to other foods; Z79.899 Other long term (current) drug therapy; X50.1XXA Overexertion from prolonged static or awkward postures, initial encounter; Y93.01 Activity, walking, marching and hiking; Y92.098 Other place in other non-institutional residence as the place of occurrence of the external cause; Y99.8 Other external cause status
CPT/HCPCS: Q0162